=== PATIENT | female | born 1980 | race African-American/Black ===

== ENCOUNTER 2022-08-14 15:15 | Emergency (ER) | payer OTHER ==
[~2022-08-14] VITALS: Ht 172.7 cm; Wt 68.0 kg
[2022-08-14 15:37] VITALS: BP 103/56
[2022-08-14] MEDS ORDERED: NALO4SPR BOTHNSTRLS (15:38)
== END 2022-08-14 15:46 | disposition left against medical advice (07) ==
LOC: ER 15:15
DX: T40.601A Poisoning by unspecified narcotics, accidental (unintentional), initial encounter (principal); X58.XXXA Exposure to other specified factors, initial encounter
CPT/HCPCS: 99283